=== PATIENT | female | born 1990 | race Caucasian/White ===

== ENCOUNTER 2019-01-13 11:44 | Outpatient (CLI) | payer MEDICAID ==
[~2019-01-13] VITALS: Ht 167.6 cm; Wt 92.9 kg
[2019-01-13 12:00] VITALS: Ht 167.6 cm; Wt 92.9 kg
[2019-01-13 12:01] VITALS: BP 117/66; PULSE 90; RESP 18
[2019-01-13] MEDS ORDERED: PNV11TAB PO (12:03)
--- NOTE | 2019-01-13 16:55 | TRIAGE ---
OB Triage Datetime Report Generated by CPN: 01/13/2019 16:54 Datetime: 01/13/2019 15:36 Stage of : OB Triage Datetime: 01/13/2019 15:27 Labor Evaluation Frequency: 0 Monitor Mode: External Pattern: Normal: <= 5 Contractions in 10 Minutes Resting Tone [place]: Relaxed Heart Rate FHR Baseline Rate: 125 Monitor Mode: External US Variability: Moderate 6-25 bpm Accelerations: 10X10 Decelerations: None Category: Category I Pain Assessment Pain Scale: 0 Pain Presence: None/Denies Pain Type: N/A Pain Goal: 3 Pain Relief Measures: Comfort Measures Datetime: 01/13/2019 14:43 Labor Evaluation Frequency: 0 Monitor Mode: External Pattern: Normal: <= 5 Contractions in 10 Minutes Resting Tone [place]: Relaxed Heart Rate FHR Baseline Rate: 120 Monitor Mode: External US Variability: Moderate 6-25 bpm Accelerations: 10X10 Decelerations: None Category: Category I Pain Assessment Pain Scale: 0 Pain Presence: None/Denies Pain Type: N/A Pain Goal: 3 Pain Relief Measures: Comfort Measures Datetime: 01/13/2019 13:49 Labor Evaluation Frequency: 0 Monitor Mode: External Pattern: Normal: <= 5 Contractions in 10 Minutes Resting Tone [place]: Relaxed Heart Rate FHR Baseline Rate: 120 Monitor Mode: External US Variability: Moderate 6-25 bpm Decelerations: None Category: Category I Pain Assessment Pain Scale: 0 Pain Presence: None/Denies Pain Type: N/A Pain Goal: 3 Pain Relief Measures: Comfort Measures Datetime: 01/13/2019 12:46 Labor Evaluation Frequency: 0 Monitor Mode: External Pattern: Normal: <= 5 Contractions in 10 Minutes Resting Tone [place]: Relaxed Heart Rate FHR Baseline Rate: 125 Monitor Mode: External US Variability: Moderate 6-25 bpm Accelerations: 10X10 Decelerations: None Category: Category I Pain Assessment Pain Scale: 0 Pain Presence: None/Denies Pain Type: N/A Pain Goal: 3 Pain Relief Measures: Comfort Measures Datetime: 01/13/2019 12:32 Stage of : OB Triage Datetime: 01/13/2019 11:55 Stage of : OB Triage Assessment Type: Triage Maternal Assessment Level of Consciousness: Keenly Alert, Responsive DTR's/Clonus: DTRs 2+; No Clonus Headache: Denies Blurred Vision: No Respiratory Effort: Unlabored; Regular Rhythm; Equal Expansion Breath Sounds, Left: Clear and Equal Breath Sounds, Right: Clear and Equal Nausea/Vomiting: Denies RUQ Epigastric Pain: Denies Facial Edema: None Temperature Route: Axillary Fall Risk Assessment History of Falling: (0) No Secondary Diagnosis: (0) No Ambulatory Aid: (0) Bedrest/Nurse Assist IV Therapy: (0) No Gait: (0) Normal/Bedrest/Immobile Mental Status: (0) Oriented to Own Ability Fall Score: 0 Fall Risk Score Definition: No Risk: No action required Labor Evaluation Frequency: 0 Monitor Mode: External Pattern: Normal: <= 5 Contractions in 10 Minutes Resting Tone [place]: Relaxed Heart Rate FHR Baseline Rate: 135 Monitor Mode: External US Variability: Moderate 6-25 bpm Accelerations: None Pain Assessment Pain Scale: 0 Pain Presence: None/Denies Pain Type: N/A Pain Goal: 3 Pain Relief Measures: Comfort Measures Datetime: 01/13/2019 11:54 Time of Arrival: 01/13/2019 11:40 EGA: 34.5 Arrived By: Ambulatory Arrived From: Home Chief Complaint: C/O DFM SINCE LAST NIGHT, DENIES LEAKING OR BLEEDING OR UC'S Movement: Decreased Contractions: Denies/Absent Rupture of Membranes: Denies Vaginal Bleeding: None Vaginal Discharge: Denies Recent Sexual Intercouse: Denies Abdominal Trauma: Not Applicable Time Provider Notified: 01/13/2019 12:32 Provider Notified: DWAIN Initial Plan: MONITOR, BPP
--- NOTE | 2019-01-13 18:51 | PN ---
Triage Information Date/Time 01/13/1911/27/1846 Reason for visit: DFM Weeks of Gestation 34w5d /Para Diabetes: none Hypertention: none Objective Vital Signs Date Temp Pulse Resp B/P (MAP) Pulse Ox O2 O2 Flow FiO2 Time Delivery Rate 01/13/19 98.6 90 18 117/66 12:01 (83) Heart Rate: 140's Contractions: None Results/Medications Imaging Results BPP 8/8 TARIQ 9.9 Disposition: Discharge Assessment/Plan A IUP 34w5d DF P f/u TARIQ and f/u with her OB JAEL PRAKASH MD Jan 13, 2019 18:51
== END 2019-01-13 16:00 | disposition home or self-care (01) ==
LOC: OBT 11:44 → L-D 11:45 → OBT 16:00
PROVIDERS: ATTEND Obstetrics & Gynecology
DX: O36.8130 Decreased fetal movements, third trimester, not applicable or unspecified (principal); Z3A.34 34 weeks gestation of pregnancy
CPT/HCPCS: 76818; Z7500; G0463

== ENCOUNTER 2019-01-24 10:39 | Outpatient (CLI) | payer MEDICAID ==
[~2019-01-24 10:39] MED LIST: PNV11TAB PO
--- NOTE | 2019-01-24 13:17 | PN ---
Triage Information Date/Time Reason for visit: She felt on her knee, present for evaluation of baby. She denies trauma to abdomen Weeks of Gestation 37 weeks and 1 day /Para -0-0-1 Diabetes: none Hypertention: none Objective Heart Rate: 130's Contractions: None Results/Medications Results 24 hrs Laboratory Tests Test 01/24/19 11:05 Urine Color YELLOW Urine Clarity CLOUDY A Urine pH 7.0 Urine Specific [place] 1.015 Urine Ketones NEGATIVE Urine Nitrite NEGATIVE Urine Bilirubin NEGATIVE Urine Urobilinogen NEGATIVE Urine Leukocyte Esterase 2+ H Urine Microscopic RBC 1 Urine Microscopic WBC 14 H Urine Squamous Epithelial Cells MANY A Urine Bacteria FEW A Urine Mucus FEW A Urine Hemoglobin NEGATIVE Urine Glucose NEGATIVE Urine Total Protein NEGATIVE Imaging Results There is a single live intrauterine gestation. Cardiac activity is present with 139 beats per minute. There is a vertex presentation. The placenta is anterior. There is no evidence of placental abruption. TARIQ = 11.4 cm. Biophysical profile: movement 2/2 tone 2/2. breathing 2/2 TARIQ 2/2 Total 02/16 RPTAT: AA . IMPRESSION: Normal biophysical profile. Disposition: Discharge Assessment/Plan 28 years old 2 para 1-0-0-1 with single intrauterine at 37 weeks and 1 day MIKAEL of 02/13/2019 states felt on her knees. She denies direct trauma to abdomen. She states good movement. She denies nausea, vomiting, shortness of breath, chest pain, headache, visual changes, vaginal bleeding or LOF. -FHR: No sign of metabolic acidosis- Category I -Contractions: None -Ultrasound performed: Normal TARIQ, BPP 8 out of 8. No evidence of placental abruption -Symptoms and sign of labor, preeclampsia, kick count discussed with patient, she voiced understanding. All of her questions answered. -Patient was discharged home in stable condition with the appropriate discharge instructions provided. I would like patient to have close follow-up with her primary physician or outpatient clinic in 1-2 days or return to triage for worsening symptoms or any other urgent concerns. FAZAL MUÑOZ Jan 24, 2019 13:17
--- NOTE | 2019-01-24 13:19 | TRIAGE ---
OB Triage Datetime Report Generated by CPN: 01/24/2019 13:19 Datetime: 01/24/2019 13:06 Stage of : OB Triage Maternal Assessment Level of Consciousness: Keenly Alert, Responsive DTR's/Clonus: DTRs 1+ Headache: Denies Breath Sounds, Left: Clear and Equal Breath Sounds, Right: Clear and Equal Nausea/Vomiting: Denies RUQ Epigastric Pain: Denies Labor Evaluation Frequency: NONE Monitor Mode: External Resting Tone [place]: Relaxed Heart Rate FHR Baseline Rate: 135 Monitor Mode: External US Variability: Moderate 6-25 bpm Accelerations: 15X15 Decelerations: None Category: Category I Pain Assessment Pain Scale: 0 Pain Presence: None/Denies Pain Type: N/A Pain Goal: 3 Vaginal Exam Membrane Status: Intact Datetime: 01/24/2019 12:00 Stage of : OB Triage Maternal Assessment Level of Consciousness: Keenly Alert, Responsive DTR's/Clonus: DTRs 1+ Headache: Denies Breath Sounds, Left: Clear and Equal Breath Sounds, Right: Clear and Equal Nausea/Vomiting: Denies RUQ Epigastric Pain: Denies Labor Evaluation Frequency: NONE Monitor Mode: External Resting Tone [place]: Relaxed Heart Rate FHR Baseline Rate: 135 Monitor Mode: External US Variability: Moderate 6-25 bpm Accelerations: 15X15 Decelerations: None Category: Category I Pain Assessment Pain Scale: 0 Pain Presence: None/Denies Pain Type: N/A Pain Goal: 3 Vaginal Exam Membrane Status: Intact Datetime: 01/24/2019 11:20 Maternal Assessment Level of Consciousness: Keenly Alert, Responsive DTR's/Clonus: DTRs 1+ Headache: Denies Blurred Vision: No Respiratory Effort: Unlabored Breath Sounds, Left: Clear and Equal Breath Sounds, Right: Clear and Equal Nausea/Vomiting: Denies RUQ Epigastric Pain: Denies Facial Edema: None Labor Evaluation Frequency: NONE Monitor Mode: External Resting Tone [place]: Relaxed Heart Rate FHR Baseline Rate: 135 Monitor Mode: External US Variability: Moderate 6-25 bpm Accelerations: 15X15 Decelerations: None Category: Category I Pain Assessment Pain Scale: 0 Pain Presence: None/Denies Pain Type: N/A Pain Goal: 3 Vaginal Exam Membrane Status: Intact Datetime: 01/24/2019 10:35 Time of Arrival: 01/24/2019 10:35 EGA: 36.2 Arrived By: Ambulatory Arrived From: Home Chief Complaint: PT CAME IN FROM HOME DUE TO POST FALL. PT DENIES ANY LEAKING OF FLUID AND BLEEDING AND STATES + MOVEMENT Movement: Present Contractions: Denies/Absent Rupture of Membranes: Denies Vaginal Bleeding: None Vaginal Discharge: Denies Recent Sexual Intercouse: Denies Abdominal Trauma: Not Applicable Additional Patient Complaints: NONE Time Provider Notified: 01/24/2019 10:45 Provider Notified: HADADIAN Initial Plan: NST AND BPP Datetime: 01/13/2019 11:55 Fall Risk Assessment Fall Score: 0 Fall Risk Score Definition: No Risk: No action required Datetime: 01/13/2019 11:54 EGA: 34.5
== END 2019-01-24 13:50 | disposition home or self-care (01) ==
LOC: OBT 10:39 → L-D 10:39 → OBT 13:50
PROVIDERS: ATTEND Obstetrics & Gynecology
DX: O26.893 Other specified pregnancy related conditions, third trimester (principal); W19.XXXA Unspecified fall, initial encounter; M25.569 Pain in unspecified knee; Z3A.37 37 weeks gestation of pregnancy
CPT/HCPCS: 76818; 81001; 85460; Z7500; G0463

== ENCOUNTER 2019-02-02 12:04 | Outpatient (CLI) | payer MEDICAID ==
[~2019-02-02] VITALS: Ht 165.1 cm; Wt 94.4 kg
[2019-02-02 12:21] VITALS: BP 116/69; PULSE 93; RESP 18
[2019-02-02 12:23] VITALS: Ht 165.1 cm; Wt 94.4 kg
--- NOTE | 2019-02-02 15:06 | TRIAGE ---
OB Triage Datetime Report Generated by CPN: 02/02/2019 15:05 Datetime: 02/02/2019 14:49 Stage of : OB Triage Headache: Denies Blurred Vision: No RUQ Epigastric Pain: Denies Facial Edema: None Labor Evaluation Frequency: occ Monitor Mode: External Duration (sec)2399: 60 Quality: Mild Pattern: Normal: <= 5 Contractions in 10 Minutes Resting Tone [place]: Relaxed Heart Rate FHR Baseline Rate: 125 Monitor Mode: External US Variability: Moderate 6-25 bpm Accelerations: 15X15 Decelerations: None Category: Category I Pain Presence: None/Denies Datetime: 02/02/2019 14:04 Stage of : OB Triage Headache: Denies Blurred Vision: No Facial Edema: None Labor Evaluation Frequency: 5-9 Monitor Mode: External Duration (sec)2399: 50 Quality: Mild Pattern: Normal: <= 5 Contractions in 10 Minutes Resting Tone [place]: Relaxed Heart Rate FHR Baseline Rate: 130 Monitor Mode: External US FHR Baseline Changes: No Baseline Change Variability: Moderate 6-25 bpm Accelerations: 15X15 Decelerations: None Category: Category I Vaginal Exam Membrane Status: Intact Datetime: 02/02/2019 13:59 Stage of : OB Triage Headache: Denies Blurred Vision: No RUQ Epigastric Pain: Denies Facial Edema: None Labor Evaluation Frequency: none Monitor Mode: External Quality: Mild Pattern: Normal: <= 5 Contractions in 10 Minutes Resting Tone [place]: Relaxed Heart Rate FHR Baseline Rate: 130 Monitor Mode: External US FHR Baseline Changes: No Baseline Change Variability: Moderate 6-25 bpm Accelerations: 15X15 Decelerations: None Category: Category I Pain Assessment Pain Scale: 4 Pain Presence: Intermittent Pain Type: Cramping Pain Location: Abdomen Pain Relief Measures: Comfort Measures Datetime: 02/02/2019 12:20 Stage of : OB Triage Maternal Assessment Level of Consciousness: Keenly Alert, Responsive DTR's/Clonus: DTRs 2+; No Clonus Headache: Denies Blurred Vision: No Respiratory Effort: Unlabored; Regular Rhythm; Equal Expansion Nausea/Vomiting: Denies RUQ Epigastric Pain: Denies Lower Extremities Edema: None Degree: None Upper Extremities Edema: None Degree: None Facial Edema: None Temperature Route: Oral Fall Risk Assessment History of Falling: (0) No Secondary Diagnosis: (0) No Ambulatory Aid: (0) Bedrest/Nurse Assist Gait: (0) Normal/Bedrest/Immobile Mental Status: (0) Oriented to Own Ability Monitor Mode: External Heart Rate FHR Baseline Rate: 135 Monitor Mode: External US Accelerations: 15X15 Category: Category I Pain Assessment Pain Scale: 4 Pain Presence: Intermittent Pain Type: Cramping Pain Location: Abdomen; Back (Annotations: lower abd) Datetime: 02/02/2019 12:17 Time of Arrival: 02/02/2019 12:20 EGA: 37.4 Chief Complaint: painful uination, back and lower abd pain Movement: Present Contractions: Occasional Rupture of Membranes: Denies Vaginal Bleeding: None Vaginal Discharge: Denies Recent Sexual Intercouse: Denies Abdominal Trauma: Not Applicable Patient Complaints: Cramping; Back Pain; Urinary Frequency; Other Additional Patient Complaints: presented to triage with the above complaints, started last night, u rine very concentrated and denies drinking plenty of water Time Provider Notified: 02/02/2019 12:32 Provider Notified: DR Combs Initial Plan: efm/ u/s/ ua Datetime: 01/24/2019 10:35 EGA: 36.2 Datetime: 01/13/2019 11:55 Fall Score: 0 Fall Risk Score Definition: No Risk: No action required Datetime: 01/13/2019 11:54 EGA: 34.5
--- NOTE | 2019-02-03 02:23 | PN ---
Triage Information Date/Time Late entry note for exam done for February 02, 2019 Reason for visit: Uterine contractions Weeks of Gestation 37 weeks and 4 days /Para 2 para 1 Diabetes: none Hypertention: none Additional information 28-year-old G2, P1 with IUP at 37 weeks and 4 days presented to triage with complaint of lower abdominal pain and back pain as well as urinary frequency and dysuria. She denies any leaking of fluid, decreased movement or vaginal bleeding. She denies any complication during her course. Objective Vital Signs Date Temp Pulse Resp B/P (MAP) Pulse Ox O2 O2 Flow FiO2 Time Delivery Rate 02/02/19 98.4 93 18 116/69 98 12:21 (85) Heart Rate: 130's Heart Rate Comments Category 1 Contractions: None Exam General appearance: Alert and oriented x4 does not appear to be in any acute distress Abdomen: Soft, gravid, fundal height consider gestational age NST: Category 1 Contractions on the monitor erect. Noted. No cervical change noted during examination in triage UA consistent with UTI patient asymptomatic Laboratory Tests Test 02/02/19 12:20 Urine Color [place] Urine Clarity CLOUDY Urine pH 6.0 Urine Specific [place] 1.023 Urine Ketones NEGATIVE mg/dL Urine Nitrite NEGATIVE mg/dL Urine Bilirubin NEGATIVE mg/dL Urine Urobilinogen 1+ mg/dL Urine Leukocyte Esterase 2+ Hilaria/ul Urine Microscopic RBC 1 /HPF Urine Microscopic WBC 19 /HPF Urine Squamous Epithelial Cells MANY /HPF Urine Bacteria FEW /HPF Urine Mucus FEW /HPF Urine Hemoglobin NEGATIVE mg/dL Urine Glucose NEGATIVE mg/dL Urine Total Protein NEGATIVE mg/dl Results/Medications Results 24 hrs Laboratory Tests Test 02/02/19 12:20 Urine Color [place] Urine Clarity CLOUDY A Urine pH 6.0 Urine Specific [place] 1.023 Urine Ketones NEGATIVE Urine Nitrite NEGATIVE Urine Bilirubin NEGATIVE Urine Urobilinogen 1+ H Urine Leukocyte Esterase 2+ H Urine Microscopic RBC 1 Urine Microscopic WBC 19 H Urine Squamous Epithelial Cells MANY A Urine Bacteria FEW A Urine Mucus FEW A Urine Hemoglobin NEGATIVE Urine Glucose NEGATIVE Urine Total Protein NEGATIVE Imaging Results PROCEDURE: US OB. CLINICAL INDICATION: Contractions TECHNIQUE: Multiple sonographic images of the pelvis were obtained. The images were reviewed on a PACS workstation. COMPARISON: 01/24/2019 FINDINGS: There is a single live intrauterine . cardiac activity is identified at a rate of 126 beats per minute. presentation is cephalic. Placenta is anterior grade 1 to II. Biophysical profile score is as follows: Breathing 2 Movements 2 Tone 2 Fluid volume 2 Amniotic fluid index = 11.4 cm Total biophysical profile score = 8/8 IMPRESSION: Biophysical profile score = 8/8 Disposition: Discharge Assessment/Plan IUP at 37 weeks and 4 days Contractions, no evidence of labor, false labor pain UTI, symptomatic testing reassuring Patient discharged home in stable condition. Advised to take adequate hydration and antibiotic with Keflex was given 500 mg p.o. 4 times daily for 7 days. Follow-up with OB office within 48 hours after discharge from the hospital discussed and recommended. Strict labor precautions kick count discussed with patient all questions answered to patient with satisfaction patient verbalized understanding about her follow-up plan of care. RENÉE TURNER MD Feb 03, 2019 02:23
== END 2019-02-02 15:15 | disposition home or self-care (01) ==
LOC: OBT 12:04 → L-D 12:06 → OBT 15:15
PROVIDERS: ATTEND Obstetrics & Gynecology
DX: O62.9 Abnormality of forces of labor, unspecified (principal); Z3A.37 37 weeks gestation of pregnancy
CPT/HCPCS: 76818; 81001; Z7500; G0463

== ENCOUNTER 2019-02-10 13:02 | Inpatient (IN) | payer MEDICAID ==
[~2019-02-10] VITALS: Ht 172.7 cm; Wt 95.9 kg
[2019-02-10 13:40] VITALS: Ht 172.7 cm; Wt 95.9 kg
--- NOTE | 2019-02-10 14:24 | TRIAGE ---
OB Triage Datetime Report Generated by CPN: 02/10/2019 14:23 Datetime: 02/10/2019 14:37 Assessment Type: Triage Maternal Assessment Level of Consciousness: Keenly Alert, Responsive DTR's/Clonus: DTRs 2+; No Clonus Headache: Denies Blurred Vision: No Respiratory Effort: Unlabored; Regular Rhythm; Equal Expansion Breath Sounds, Left: Clear and Equal Breath Sounds, Right: Clear and Equal Nausea/Vomiting: Denies RUQ Epigastric Pain: Denies Lower Extremities Edema: None Degree: None Upper Extremities Edema: None Degree: None Facial Edema: None Fall Risk Assessment History of Falling: (0) No Secondary Diagnosis: (0) No Ambulatory Aid: (0) Bedrest/Nurse Assist IV Therapy: (0) No Gait: (0) Normal/Bedrest/Immobile Mental Status: (0) Oriented to Own Ability Fall Score: 0 Fall Risk Score Definition: No Risk: No action required Datetime: 02/10/2019 13:47 Vaginal Exam Dilatation (cms): 3.5 Effacement (%): 80 Station: -2 Exam By: TM Datetime: 02/10/2019 13:43 Time of Arrival: 02/10/2019 12:51 EGA: 38.5 Chief Complaint: UC Movement: Present Contractions: Regular Time Contractions Began: 02/10/2019 07:00 Rupture of Membranes: Denies Vaginal Discharge: Denies Recent Sexual Intercouse: Denies Abdominal Trauma: Not Applicable Patient Complaints: Contractions Time Provider Notified: 02/10/2019 15:54 Provider Notified: Beth Initial Plan: NST, VE Datetime: 02/02/2019 15:08 Stage of : OB Triage Datetime: 02/02/2019 15:07 Stage of : OB Triage Datetime: 02/02/2019 12:17 EGA: 37.4 Datetime: 01/24/2019 10:35 EGA: 36.2 Datetime: 01/13/2019 11:55 Fall Score: 0 Fall Risk Score Definition: No Risk: No action required Datetime: 01/13/2019 11:54 EGA: 34.5
[2019-02-10] MEDS ORDERED: LACTATED RINGER'S 1,000 ML IV PRN (15:37)
[2019-02-10] MEDS ORDERED: LACTATED RINGER'S 1,000 ML IV SCH (15:37)
[2019-02-10] MEDS ORDERED: IBUPROFEN 600 MG TAB PO PRN (16:00)
[2019-02-10] MEDS ORDERED: CARBOPROST 250 MCG INJ IM PRN ×2 (16:00→20:30)
[2019-02-10] MEDS ORDERED: METHYLERGONOVINE 0.2 MG INJ IM PRN ×2 (16:00→20:30)
[2019-02-10] MEDS ORDERED: LIDOCAINE 1% (MPF) 30 ML INJ INJ PRN (16:00)
[2019-02-10] MEDS ORDERED: OXYTOCIN 30 UNITS/LR 500 ML IV PRN ×2 (16:00→20:30)
[2019-02-10] MEDS ORDERED: OXYTOCIN 30 UNITS/LR 500 ML IV SCH ×4 (16:00→20:05)
[2019-02-10] MEDS ORDERED: MISOPROSTOL 200 MCG TAB PR PRN ×2 (16:00→20:30)
[2019-02-10] MEDS ORDERED: AMPICILLIN 2 GM/NS (PMX) 100 ML IV ONE (16:00)
[2019-02-10] MEDS ORDERED: BUTORPHANOL 2 MG INJ IV PRN (16:00)
[2019-02-10] MEDS ORDERED: AMPICILLIN 1 GM/NS (PMX) 50 ML IV SCH (20:00)
--- NOTE | 2019-02-10 20:00 | HP ---
Date/Time of Note Date/Time of Note DATE: 02/10/19 TIME: 19:57 OB - History Hx of Present Free Text/Dictation 28-year-old 2 para 1 at 38 weeks and 5 days of gestation with estimated date of delivery February 19, 2019 Patient presents in active labor with regular contractions, denies vaginal bleeding or leaking fluid She reports positive movement GBS status is unknown Care: Good Care Obstetrical Complications: None Medical Complications: None Past Family/Social History * Past Medical, Surgical, Family histories are noncontributory to this admission OB Admission Exam Physical Exam HEENT: WNL Heart: Rhythm Normal Lungs: Clear, Equal Abdomen: WNL Extremities: Normal Reflexes: Normal Cervical Dilatation: 4cm Effacement: 75% Station: -2 Membranes: Intact Heart Rate: 140's Accelerations: Accelerations Present Decelerations: No Decelerations Varibility: Moderate Contractions on Admission: < 5 Minutes Apart Intensity: Moderate Last 72 hours Lab Results CBC & BMP 02/10/19 14:40 OB Assessment/Plan Reason for admission: active labor Plan: Expectant Management Other plan: Admit to labor and delivery Antibiotics for GBS prophylaxis Pain meds as needed Copies To: CC: FAZAL MUÑOZ ; GENA BUSTAMANTE MD Feb 10, 2019 20:00
[2019-02-10] MEDS ORDERED: LACTATED RINGER'S 1,000 ML IV* SCH (20:05)
--- NOTE | 2019-02-10 20:05 | LDN ---
Date/Time of Note Date/Time of Note DATE: 02/10/19 TIME: 20:01 Delivery Summary Weeks of Gestation Term gestation Placenta Delivered: Spontaneously Meconium: none Episiotomy: No Anesthesia type: None Estimated blood loss: 200 Sponge & Needle done & correct: Yes All needle counts correct: Yes Any foreign bodies felt in the: No Infant Delivery Information Sex Infant Sex: male Apgars 1 Minute: 8 5 Minute: 9 Suctioning Nose & mouth suctioned at girish: Yes Delee suction performed: No Umbilical Cord Umbilical cord with: 3 Vessels Cord presentations: no nuchal cord Cord Blood was obtained: Yes Mother & Baby Disposition Disposition Baby's weight 7 pounds 5 ounces/3310 g Mom & Baby to Maternity; Good: Yes Baby to NICU: No Copies To: CC: FAZAL MUÑOZ BAHAREH MD Feb 10, 2019 20:05
[2019-02-10] MEDS ORDERED: BENZOCAINE 20% 56 ML SPRAY TOP PRN (20:30)
[2019-02-10] MEDS ORDERED: WITCH HAZEL/GLYCERIN PAD PR PRN (20:30)
[2019-02-10] MEDS ORDERED: LANOLIN HPA 1 PKT TOP PRN (20:30)
[2019-02-10] MEDS ORDERED: ACETAMINOPHEN 325 MG TAB PO PRN ×2 (20:30)
[2019-02-10] MEDS ORDERED: DIBUCAINE 1% 30 GM OINT TOP PRN (20:30)
[2019-02-10] MEDS ORDERED: MAGNESIUM HYDROXIDE 30ML CUP PO PRN (20:30)
[2019-02-10] MEDS ORDERED: ONDANSETRON 4 MG INJ IV PRN (20:30)
[2019-02-10] MEDS: IBUPROFEN 600 MG TAB PO PRN (23:47)
[2019-02-11] VITALS (8 sets, daily range): BP systolic 96–114; BP diastolic 58–71; PULSE 62–87; RESP 18–19
[2019-02-11] MEDS: SENNA/DOCUSATE NA (8.6MG/50MG) TAB PO PRN ×2 (08:30→23:23)
--- NOTE | 2019-02-11 18:46 | PN ---
Date/Time of Note Date/Time of Note DATE: 02/11/19 TIME: 18:45 OB Subjective Subjective Subjective PPD# 1 Patient is doing well. She denies nausea, vomiting, shortness of breath, chest pain, headache. She has been ambulating without difficulty, tolerating regular diet. Pain is well controlled on current medications OB Objective Objective Objective Vital Signs Date Temp Pulse Resp B/P (MAP) Pulse Ox O2 O2 Flow FiO2 Time Delivery Rate 02/11/19 98.2 87 18 102/68 16:47 (79) 02/11/19 Room Air 16:15 General: AAO X 3, comfortable, NAD, appropriate mood and affect. ABD: +BS. Soft, non-tender. Uterus 2 cm below umbilicus Flank: No CVA tenderness (B/L) LE: Mild edema. No clubbing, cyanosis, thigh or calf tenderness (B/L). Homans 'sign is negative OB Assessment/Plan Other plan: 28 years old -0-0-2 s/p normal vaginal delivery at 38 weeks and 5 days. PPD#1 - AF, VSS - Contraception methods with R/B/A/FR discussed - Continue care - Discharge home tomorrow - Rx and instruction given - Follow up in 2 and 6 weeks at clinic FAZAL MUÑOZ Feb 11, 2019 18:46
--- NOTE | 2019-02-11 18:47 | DS ---
Date/Time of Note Date/Time of Note DATE: 02/11/19 TIME: 18:46 Obstetrical Discharge Record Final Diagnosis Final Diagnosis: Term delivered Other Final Diagnosis 28 years old -0-0-2 s/p normal vaginal delivery at 38 weeks and 5 days. PPD#1. course was unremarkable. She is ambulating and tolerating regular diet. She is voiding without difficulty. - AF, VSS - Contraception methods with R/B/A/FR discussed - Continue care - Discharge home tomorrow - Rx and instruction given - Follow up in 2 and 6 weeks at clinic Vaginal Delivery Obstetrical Delivery: Spontaneous Condition on Discharge Physical Assessment Voiding: Yes Bowel Movement: Yes Breast: Soft, non-tender Fundus: Firm Calf Tenderness: No Patient Condition: Stable FAZAL MUÑOZ Feb 11, 2019 18:47
[2019-02-11] MEDS: IBUPROFEN 600 MG TAB PO PRN (23:24)
[2019-02-12 04:00] VITALS: BP 103/60; PULSE 74; RESP 18
[2019-02-12 08:45] VITALS: BP 110/62; PULSE 86; RESP 18
[2019-02-12] MEDS: SENNA/DOCUSATE NA (8.6MG/50MG) TAB PO PRN (08:52)
== END 2019-02-12 17:30 | disposition home or self-care (01) | DRG 807 ==
LOC: OBT 13:02 → L-D 13:02 → OBT 13:55 → L-D 14:07 → PP1 21:46
PROVIDERS: ADMIT Obstetrics & Gynecology; ATTEND Obstetrics & Gynecology
PROC: 10E0XZZ Delivery of Products of Conception, External Approach (ICD-10-PCS; principal; 2019-02-10)
DX: O80 Encounter for full-term uncomplicated delivery (principal); Z37.0 Single live birth; Z3A.38 38 weeks gestation of pregnancy
CPT/HCPCS: 76815; 85025; 85610; 85730; 86592; 86900; 86901; 87340; 99464; G0463; J0290; J2590; J7120